=== PATIENT | female | born 1965 | race Caucasian/White ===

== ENCOUNTER → 2017-12-17 13:32 | Outpatient (CLI) | payer BC, SELFPAY ==
--- NOTE | 2017-12-17 13:35 | XR_ITS ---
XR ankle RT min 3V HISTORY: Cyst along the medial aspect of the ankle ITS.REASON: Possible cyst on RT ankle ORDERING PHYSICIAN: Kulwant Daily MD PATIENT AGE: 52 years Comparison: None FINDINGS: No bony abnormalities are evident. No lytic or blastic change. There are mild osteoarthritic changes with minimal spurring at the distal aspect of the medial malleolus and lateral malleolus. Minimal hypertrophic changes are present along the waist of the talus. There is a 8 mm calcaneal spur. IMPRESSION: 1. Bony hypertrophic changes at the distal tibia and fibula were 2. Otherwise negative, no lytic lesions evident
== END ==
PROVIDERS: PCP Physician Assistant; Visit Provider Orthopaedic Surgery
DX: M25.571 Pain in right ankle and joints of right foot (principal)
CPT/HCPCS: 73610

== ENCOUNTER → 2017-12-25 12:04 | Outpatient (CLI) | payer BC, SELFPAY ==
--- NOTE | 2017-12-25 12:06 | MR_ITS ---
MR ankle RT wo con HISTORY: Growth on the medial side of the ankle ITS.REASON: right ankle pain ORDERING PHYSICIAN: Kulwant Daily MD PATIENT AGE: 52 years Comparison: 12/17/2017 TECHNIQUE: Standard multiplanar multiecho sequences are performed without contrast. FINDINGS: A marker is placed on the palpable nodule along the medial side of the right ankle posteriorly. This represents a subcutaneous well-circumscribed nodule oval in nature measuring 10 x 6 mm which is iso to hypointense on T1 and hyperintense on T2. This is well-circumscribed. This is medial to the Achilles tendon and does not appear to be associated with the tendon. Incidental note is made of fluid along the posterior aspect of the talocalcaneal joint. A small fluid collection is also noted along the anterior lateral aspect of the talus and in the talonavicular joint space. Mild hypertrophic changes are present at the talonavicular joint dorsally No obvious ligamentous abnormalities. Tendons about the ankle have an unremarkable appearance. IMPRESSION: 1. Well-circumscribed 10 x 6 mm subcutaneous cyst along the posterior medial aspect of the ankle which may represent a sebaceous cyst 2. Bursal fluid collections along the posterior aspect of the talocalcaneal joint and the talonavicular joint consistent with bursitis
== END ==
PROVIDERS: Family Provider Physician Assistant; PCP Physician Assistant; Visit Provider Orthopaedic Surgery
DX: M25.571 Pain in right ankle and joints of right foot (principal)
CPT/HCPCS: 73721

== ENCOUNTER → 2018-01-28 09:55 | Outpatient (CLI) | payer BC, SELFPAY ==
--- NOTE | 2018-01-28 10:14 | XR_ITS ---
XR chest 2V HISTORY: ITS.REASON: HTN ORDERING PHYSICIAN: Jessica Fierro DPM PATIENT AGE: 52 years COMPARISON: None available FINDINGS: The cardiomediastinal silhouette and pulmonary vascularity are within normal limits. The lungs are clear without infiltrates, suspicious nodules, or pleural effusions. No acute bony abnormalities. IMPRESSION: Negative chest, no acute finding
[2018-01-28 11:01] LABS: Basophils # 0.1 K/mm3 (0-0.2); Basophils % 0.6 % (0.1-2.0); Eosinophils # 0.1 K/mm3 (0.0-0.4); Eosinophils % 1.4 % (0.1-12.0); Hematocrit 44.4 % (37.0-47.0); Hemoglobin 14.5 g/dL (12.2-16.2); Lymphocytes # 2.2 K/mm3 (0.7-4.5); Lymphocytes % 26.2 K/mm3 (10-50); Mean Corpuscular HGB Conc 32.8 g/dL (31.8-35.4); Mean Corpuscular Hemoglobin 28.9 pg (27.0-31.2); Mean Corpuscular Volume 88.1 fl (81-99); Mean Platelet Volume 7.7 fl (7.4-10.4); Monocytes # 0.6 K/mm3 (0.1-1.0); Monocytes % 7.3 % (1.7-9.3); Neutrophils # 5.4 K/mm3 (1.8-7.8); Neutrophils % 64.6 % (37.0-80.0); Platelet Count 307 K/mm3 (142-424); Red Blood Count 5.04 M/mm3 (4.20-5.40); Red Cell Distribution Width 13.3 % (11.5-17.5); White Blood Count 8.3 K/mm3 (4.8-10.8)
[2018-01-28 11:18] LABS: Urine Pregnancy, HCG Qual. Negative (Negative)
[2018-01-28 11:38] LABS: Alanine Aminotransferase 53 U/L (12-78); Albumin Level 3.6 gm/dL (3.4-5.0); Alkaline Phosphatase 123 U/L (46-116); Anion Gap 7.3 mEq/L (5-15); Aspartate Amino Transferase 34 U/L (15-37); Bilirubin,Total 0.4 mg/dL (0.2-1.0); Blood Urea Nitrogen 10 mg/dL (7-18); Calcium 9.5 mg/dL (8.5-10.1); Carbon Dioxide 34 mmol/L (21.0-32.0); Chloride 103 mmol/L (98-107); Creatinine,Serum 0.88 mg/dL (0.55-1.02); Estimated Glomerular Filt Rate 68 ml/min (>60); GFR (African American) 82 ML/MIN (>60); Globulin 3.7 gm/dl (1.3-3.2); Glucose 94 mg/dL (74-106); Potassium 4.3 mmoL/L (3.5-5.1); Sodium 140 mmol/L (136-145); Total Protein,Serum 7.3 gm/dL (6.4-8.2)
== END ==
PROVIDERS: PCP Physician Assistant; Visit Provider Podiatrist
DX: Z01.818 Encounter for other preprocedural examination (principal); M67.471 Ganglion, right ankle and foot; M76.821 Posterior tibial tendinitis, right leg; M77.51 Other enthesopathy of right foot and ankle; M25.571 Pain in right ankle and joints of right foot; G89.29 Other chronic pain
CPT/HCPCS: 36415; 71046; 80053; 81025; 85025; 93005

== ENCOUNTER 2018-03-12 08:05 | Outpatient (RCR) | payer BC, SELFPAY | END 2018-03-12 12:26 | disposition home or self-care (01) | LOC: PT 08:05 | PROVIDERS: Family Provider Physician Assistant; PCP Physician Assistant; Visit Provider Podiatrist | DX: Z98.890 Other specified postprocedural states (principal) | CPT/HCPCS: 97110; 97163 ==

== ENCOUNTER → 2018-03-26 13:40 | Outpatient (CLI) | payer BC, SELFPAY ==
--- NOTE | 2018-03-26 13:43 | XR_ITS ---
XR foot wt bearing RT 3V HISTORY: Follow-up surgery, foot pain ITS.REASON: POST-OP ORDERING PHYSICIAN: Jessica Fierro DPM PATIENT AGE: 52 years COMPARISON: None FINDINGS: Bandage artifact overlies the mid foot. Hypertrophic changes are present at the anterior distal tibia and there are mild osteoarthritic changes of the first metatarsophalangeal joint. No acute fracture or dislocation. No lytic changes. IMPRESSION: Mild osteoarthritis worst metatarsophalangeal joint and hypertrophy of the anterior distal tibia. Bone spur of the calcaneus also noted not mentioned in the body the report. Overlying bandage artifact No acute finding
--- NOTE | 2018-03-26 13:43 | XR_ITS ---
XR ankle wt bearing RT min 3V HISTORY: Follow-up surgery ITS.REASON: POST-OP ORDERING PHYSICIAN: Jessica Fierro DPM PATIENT AGE: 52 years Comparison: None FINDINGS: No fracture or dislocation. No lytic or blastic change. There is normal mineralization.. The joint spaces are well-preserved. No significant degenerative/arthritic changes. No erosive changes evident. Hypertrophic changes of the ureter distal tibia once again noted. Bandage artifact is present IMPRESSION: Bandage artifact, no acute finding
== END ==
PROVIDERS: PCP Physician Assistant; Visit Provider Podiatrist
DX: Z98.890 Other specified postprocedural states (principal)
CPT/HCPCS: 73610; 73630

== ENCOUNTER → 2022-02-05 17:45 | Outpatient (CLI) | payer MEDICARE, SELFPAY ==
[2022-02-05 19:26] LABS: Basophils # 0.1 K/mm3 (0-0.2); Basophils % 0.5 % (0.1-2.0); Eosinophils # 0.2 K/mm3 (0.0-0.4); Eosinophils % 1.6 % (0.1-12.0); Hematocrit 43.7 % (37.0-47.0); Hemoglobin 14.7 g/dL (12.2-16.2); Lymphocytes # 2.3 K/mm3 (0.7-4.5); Lymphocytes % 24.4 % (10-50); Mean Corpuscular HGB Conc 33.6 g/dL (31.8-35.4); Mean Corpuscular Hemoglobin 29.7 pg (27.0-31.2); Mean Corpuscular Volume 88.5 fl (81-99); Mean Platelet Volume 8.8 fl (7.4-10.4); Monocytes # 0.5 K/mm3 (0.1-1.0); Monocytes % 5.7 % (1.7-9.3); Neutrophils # 6.5 K/mm3 (1.8-7.8); Neutrophils % 67.9 % (37.0-80.0); Platelet Count 317 K/mm3 (142-424); Red Blood Count 4.94 M/mm3 (4.20-5.40); Red Cell Distribution Width 13.6 % (11.5-17.5); White Blood Count 9.6 K/mm3 (4.8-10.8)
[2022-02-05 19:28] LABS: Alanine Aminotransferase 56 U/L (12-78); Albumin Level 4.2 g/dl (3.5-5.0); Albumin/Globulin Ratio 1.4 (1.1-1.8); Alkaline Phosphatase 181 U/L (38-126); Anion Gap 11.5 mEq/L (5-15); Aspartate Amino Transferase 57 U/L (14-36); Bilirubin,Total 0.5 mg/dl (0.2-1.3); Blood Urea Nitrogen 20 mg/dl (7-17); Calcium 9.7 mg/dl (8.4-10.2); Carbon Dioxide 29 mmol/L (22.0-30.0); Chloride 104 mmol/L (98-107); Chol/HDL Ratio 2.8 (1-3.5); Cholesterol 169 mg/dl (140-200); Estimated Glomerular Filt Rate 87 ml/min (>60); GFR (African American) 105 ML/MIN (>60); Globulin 2.9 g/dL (1.3-3.2); Glucose 115 mg/dl (74-100); HDL Cholesterol 61 mg/dl (40-60); Potassium 4.5 mmoL/L (3.5-5.1); Sodium 140 mmol/L (136-145); Total Protein,Serum 7.1 g/dl (6.3-8.2); Triglycerides 106 mg/dl (30-150); VLDL Cholesterol 21 mg/dL (0-40)
[2022-02-05 19:39] LABS: Direct LDL Cholesterol 70.47 mg/dL (100-129)
[2022-02-05 20:00] LABS: Thyroid Stimulating Hormone 0.06 uIU/mL (0.465-4.68)
== END ==
PROVIDERS: PCP Family Medicine; Visit Provider Family Medicine
DX: K21.9 Gastro-esophageal reflux disease without esophagitis (principal); E78.5 Hyperlipidemia, unspecified; E03.9 Hypothyroidism, unspecified; I10 Essential (primary) hypertension
CPT/HCPCS: 80053; 80061; 84443; 85025

== ENCOUNTER → 2022-05-07 10:08 | Outpatient (CLI) | payer MEDICARE, SELFPAY ==
[2022-05-07 20:20] LABS: Thyroid Stimulating Hormone 0.21 uIU/mL (0.465-4.68)
== END ==
PROVIDERS: PCP Family Medicine; Visit Provider Family Medicine
DX: I10 Essential (primary) hypertension (principal)
CPT/HCPCS: 84443

== ENCOUNTER → 2022-09-30 08:06 | Outpatient (CLI) | payer MEDICARE, OTHER, SELFPAY ==
--- NOTE | 2022-09-30 08:15 | XR_ITS ---
FINAL REPORT CLINICAL HISTORY: foot pain FINDINGS: Left foot Three views were obtained. There is no acute fracture or dislocation. There is a large plantar spur. There are mild hypertrophic changes along the dorsal aspect of the intertarsal joints. No soft tissue abnormality is identified. IMPRESSION: Degenerative and chronic appearing findings. Reviewed, Interpreted and Dictated by Sergio Mondragon MD Transcribed by Zenia Epps Authenticated and . [facility]
--- NOTE | 2022-09-30 08:15 | XR_ITS ---
FINAL REPORT CLINICAL HISTORY: ankle pain FINDINGS: Left ankle Three views were obtained. There is no acute fracture or dislocation. There are mild hypertrophic changes along the dorsal aspect of the intertarsal joints. There is a well corticated ossific density at the inferior medial malleolus measuring 7 mm which may be due to old trauma. IMPRESSION: Degenerative and chronic appearing findings. Reviewed, Interpreted and Dictated by Sergio Mondragon MD Transcribed by Zenia Epps Authenticated and [facility]
== END ==
PROVIDERS: PCP Family Medicine; Visit Provider Podiatrist
DX: M79.672 Pain in left foot; M25.572 Pain in left ankle and joints of left foot
CPT/HCPCS: 73610; 73630

== ENCOUNTER → 2022-12-31 19:00 | Outpatient (CLI) | payer MEDICARE, OTHER, SELFPAY ==
[2022-12-31 16:57] LABS: Basophils % 0.4 % (0.1-2.0); Eosinophils # 0.2 K/mm3 (0.0-0.4); Eosinophils % 2.4 % (0.1-12.0); Hematocrit 43.5 % (37.0-47.0); Hemoglobin 14.6 g/dL (12.2-16.2); Lymphocytes % 26.9 % (10-50); Mean Corpuscular HGB Conc 33.5 g/dL (31.8-35.4); Mean Corpuscular Hemoglobin 29.1 pg (27.0-31.2); Mean Corpuscular Volume 86.8 fl (81-99); Mean Platelet Volume 8.7 fl (7.4-10.4); Monocytes # 0.5 K/mm3 (0.1-1.0); Monocytes % 6.8 % (1.7-9.3); Neutrophils # 4.7 K/mm3 (1.8-7.8); Neutrophils % 63.5 % (37.0-80.0); Platelet Count 344 K/mm3 (142-424); Red Blood Count 5.02 M/mm3 (4.20-5.40); Red Cell Distribution Width 13.8 % (11.5-17.5); White Blood Count 7.3 K/mm3 (4.8-10.8)
[2022-12-31 17:04] LABS: Anion Gap 14.7 mEq/L (5-15); Blood Urea Nitrogen 14 mg/dl (7-17); Calcium 9.4 mg/dl (8.4-10.2); Carbon Dioxide 27 mmol/L (22.0-30.0); Chloride 104 mmol/L (98-107); Estimated Glomerular Filt Rate 87 ml/min (>60); GFR (African American) 105 ML/MIN (>60); Glucose 189 mg/dl (74-100); Potassium 4.7 mmoL/L (3.5-5.1); Sodium 141 mmol/L (136-145)
== END ==
PROVIDERS: PCP Family Medicine; Visit Provider Family Medicine
DX: I10 Essential (primary) hypertension (principal)
CPT/HCPCS: 80048; 85025

== ENCOUNTER → 2023-01-16 15:45 | Outpatient (CLI) | payer MEDICARE, OTHER, SELFPAY ==
[2023-01-16 17:13] LABS: Chol/HDL Ratio 2.3 (1-3.5); Cholesterol 177 mg/dl (140-200); HDL Cholesterol 76 mg/dl (40-60); Triglycerides 80 mg/dl (30-150); VLDL Cholesterol 16 mg/dL (0-40)
[2023-01-16 17:22] LABS: Hemoglobin A1C 6.2 % (4.0-6.0)
[2023-01-16 17:24] LABS: Direct LDL Cholesterol 75.58 mg/dL (100-129)
[2023-01-16 17:44] LABS: Thyroid Stimulating Hormone 0.93 uIU/mL (0.465-4.68)
== END ==
PROVIDERS: PCP Family Medicine; Visit Provider Family Medicine
DX: E11.9 Type 2 diabetes mellitus without complications (principal); I10 Essential (primary) hypertension; E03.9 Hypothyroidism, unspecified
CPT/HCPCS: 80061; 83036; 84443

== ENCOUNTER → 2023-01-22 11:43 | Outpatient (CLI) | payer MEDICARE, OTHER, SELFPAY ==
--- NOTE | 2023-01-22 11:46 | US_ITS ---
FINAL REPORT CLINICAL HISTORY: hypothyroid COMPARISON: None FINDINGS: Thyroid ultrasound: The right lobe of the thyroid measures 2.4 x 0.7 x 0.74 cm in size. The overall echotexture of the right lobe of the thyroid is heterogeneous. The overall size of the right lobe of the thyroid is small. The left lobe of the thyroid measures 2.5 x 0.6 x 1 cm in size. The overall echotexture of the right lobe of the thyroid is heterogeneous. There is a single cystic nodule in the left lobe which measures 0.5 x 0.2 x 0.3 cm in size, a TI-RADS category 1 nodule. The overall size of the left lobe is also small. The isthmus of the thyroid gland measures 0.15 cm in thickness. IMPRESSION: Small heterogeneous thyroid gland, possibly secondary to chronic thyroiditis. Single small cystic nodule, TI-RADS 1 category nodule as described above. No follow-up is required. Reviewed, Interpreted and Dictated by Loyd Nick III, MD Transcribed by Lo yKle Authenticated and [facility]
== END ==
LOC: RAD 11:44
PROVIDERS: PCP Family Medicine; Visit Provider Family Medicine
DX: E03.9 Hypothyroidism, unspecified (principal)
CPT/HCPCS: 76536

== ENCOUNTER → 2023-02-05 23:21 | Outpatient (CLI) | payer MEDICARE, OTHER, SELFPAY ==
[2023-02-05 17:37] LABS: Anion Gap 12.7 mEq/L (5-15); Blood Urea Nitrogen 11 mg/dl (7-17); Calcium 8.7 mg/dl (8.4-10.2); Carbon Dioxide 29 mmol/L (22.0-30.0); Chloride 104 mmol/L (98-107); Estimated Glomerular Filt Rate 87 ml/min (>60); GFR (African American) 105 ML/MIN (>60); Glucose 187 mg/dl (74-100); Potassium 3.7 mmoL/L (3.5-5.1); Sodium 142 mmol/L (136-145)
[2023-02-05 21:01] LABS: Microalbumin/Creatinine Ratio 13.3
[2023-02-05 21:05] LABS: Creatinine,Urine Random 183 mg/dL (Not Estab.)
== END ==
PROVIDERS: PCP Family Medicine; Visit Provider Family Medicine
DX: E11.9 Type 2 diabetes mellitus without complications (principal); E87.6 Hypokalemia; Z79.84 Long term (current) use of oral hypoglycemic drugs
CPT/HCPCS: 80048; 82043; 82570

== ENCOUNTER → 2023-04-01 10:30 | Outpatient (CLI) | payer MEDICARE, OTHER, SELFPAY | PROVIDERS: PCP Family Medicine; Visit Provider Family Medicine | DX: R30.0 Dysuria (principal); B96.29 Other Escherichia coli [E. coli] as the cause of diseases classified elsewhere | CPT/HCPCS: 87086; 87088; 87186 ==

== ENCOUNTER → 2023-06-12 13:04 | Outpatient (CLI) | payer MEDICARE, OTHER, SELFPAY | PROVIDERS: PCP Family Medicine; Visit Provider Family Medicine | DX: E11.9 Type 2 diabetes mellitus without complications (principal); Z79.84 Long term (current) use of oral hypoglycemic drugs | CPT/HCPCS: 83036 ==

== ENCOUNTER → 2023-06-14 08:01 | Outpatient (CLI) | payer MEDICARE, OTHER, SELFPAY ==
--- NOTE | 2023-06-14 08:02 | MR_ITS ---
PROCEDURE INFORMATION: Exam: MR Left Lower Extremity Joint Without Contrast; Ankle Exam date and time: 06/14/2023 8:02 AM Age: 57 years old Clinical indication: Patient HX: Left ankle pain TECHNIQUE: Imaging protocol: Magnetic resonance imaging of the left lower extremity without contrast. Exam focused on the ankle. COMPARISON: CR XR ANKLE WT BEARING LT MIN 3V 09/30/2022 8:20 AM FINDINGS: Bones/joints: Prominent calcaneal spurs are identified. Small tibiotalar and subtalar joint effusions are identified. Partial failure of fat saturation limits evaluation of the mid and visualized forefoot. No dislocation ankle. No visualized acute marrow edema involving the ankle. Minimal fluid is identified the level of the MTP joint, consistent with effusion. Evaluation of this joint is limited. Degenerative spurring is identified at the tibiotalar and subtalar joints. There is spurring of the medial malleolus and adjacent talus. Inferior to the medial malleolus, a few tiny ossific loose bodies are identified. Spurring is also identified of the lateral malleolus. LIGAMENTS: Distal tibiofibular syndesmosis: Heterogeneous signal intensity of the anterior and posterior tibiofibular ligaments. No full-thickness tear is identified. Anterior talofibular ligament: There is heterogeneous signal intensity of the anterior talofibular ligament. Partial tear is suggested. Posterior talofibular ligament: No visualized tear. Calcaneofibular ligament: Minimal edema is seen adjacent to the calcaneofibular ligament. Ligament sprain is suggested. This ligament is small in caliber, and partial tear cannot be excluded. Deltoid ligament complex: No visualized tear. TENDONS: Flexor tendons of foot: There is minimal fluid adjacent to the flexor digitorum tendon, and tenosynovitis cannot be excluded. Tibialis posterior tendon: Minimal tenosynovitis of the posterior tibialis tendon. Peroneal tendons: Minimal tenosynovitis of the peroneal tendons. Extensor tendons of foot: Unremarkable as visualized. Tibialis anterior tendon: Minimal fluid is seen adjacent to the tibialis anterior tendon, and tenosynovitis cannot be excluded. Achilles tendon: Thickening and heterogeneous signal intensity are visualized of the Achilles tendon, consistent with tendinosis. Tarsal canal (Sinus tarsi): A cystic collection of fluid are identified dorsal to the anterior talus and extending into the sinus tarsi, consistent with a synovial or ganglion cyst. This measures 2.0 x 1.6 x 1.2 cm. Mild edema within the sinus tarsi. Soft tissues: Mild soft tissue edema is identified at the plantar aspect of the forefoot. An isointense pressure lesion on T1 is identified plantar to the 5th MTP joint. Evaluation of the forefoot is limited. Plantar fascia: Intact, as visualized. IMPRESSION: 1. Achilles tendinosis. 2. Small tibiotalar and subtalar joint effusions are identified. 3. Minimal tenosynovitis of the posterior tibialis tendon. Minimal tenosynovitis of the peroneal tendons. 4. Suggested partial tear of the anterior talofibular ligament. 5. Minimal edema is seen adjacent to the calcaneofibular ligament. Ligament sprain is suggested. 6. Degenerative changes. Inferior to the medial malleolus, a few tiny ossific loose bodies are identified. Prominent calcaneal spurs are identified. 7. A cystic collection of fluid are identified dorsal to the anterior talus and extending into the sinus tarsi, consistent with a synovial or ganglion cyst. 8. Additional findings described above.
== END ==
PROVIDERS: PCP Family Medicine; Visit Provider Podiatrist
DX: M25.572 Pain in left ankle and joints of left foot (principal); M76.62 Achilles tendinitis, left leg; S86.012A Strain of left Achilles tendon, initial encounter
CPT/HCPCS: 73721

== ENCOUNTER 2023-08-19 16:44 | Outpatient (CLI) | payer MEDICARE, OTHER, SELFPAY | END 2023-08-19 23:59 | LOC: LAB.DROPOF 16:44 | PROVIDERS: PCP Family Medicine; Visit Provider Family Medicine | DX: R39.9 Unspecified symptoms and signs involving the genitourinary system (principal); B96.89 Other specified bacterial agents as the cause of diseases classified elsewhere | CPT/HCPCS: 87086 ==

== ENCOUNTER 2023-09-25 17:09 | Outpatient (CLI) | payer MEDICARE, OTHER, SELFPAY | END 2023-09-25 23:59 | LOC: LAB.DROPOF 17:10 | PROVIDERS: PCP Family Medicine; Visit Provider Family Medicine | DX: R30.0 Dysuria (principal); B95.1 Streptococcus, group B, as the cause of diseases classified elsewhere; B96.89 Other specified bacterial agents as the cause of diseases classified elsewhere | CPT/HCPCS: 87086 ==

== ENCOUNTER 2024-01-13 16:49 | Outpatient (CLI) | payer MEDICARE, OTHER, SELFPAY ==
[2024-01-13 16:43] LABS: Basophils # 0.1 K/mm3 (0-0.2); Basophils % 0.9 % (0.1-2.0); Eosinophils # 0.1 K/mm3 (0.0-0.4); Eosinophils % 1.2 % (0.1-12.0); Hematocrit 42.4 % (37.0-47.0); Hemoglobin 14.2 g/dL (12.2-16.2); Lymphocytes # 2.1 K/mm3 (0.7-4.5); Lymphocytes % 27.4 % (10-50); Mean Corpuscular HGB Conc 33.4 g/dL (31.8-35.4); Mean Corpuscular Hemoglobin 30.6 pg (27.0-31.2); Mean Corpuscular Volume 91.5 fl (81-99); Mean Platelet Volume 9.1 fl (7.4-10.4); Monocytes # 0.4 K/mm3 (0.1-1.0); Monocytes % 4.9 % (1.7-9.3); Neutrophils # 4.9 K/mm3 (1.8-7.8); Neutrophils % 65.5 % (37.0-80.0); Platelet Count 312 K/mm3 (142-424); Red Blood Count 4.63 M/mm3 (4.20-5.40); Red Cell Distribution Width 14.1 % (11.5-17.5); White Blood Count 7.5 K/mm3 (4.8-10.8)
[2024-01-13 17:16] LABS: Alanine Aminotransferase 38 U/L (12-78); Albumin Level 4.2 g/dl (3.5-5.0); Albumin/Globulin Ratio 1.4 (1.1-1.8); Alkaline Phosphatase 118 U/L (38-126); Anion Gap 12.3 mEq/L (5-15); Aspartate Amino Transferase 38 U/L (14-36); Bilirubin,Total 0.6 mg/dl (0.2-1.3); Blood Urea Nitrogen 10 mg/dl (7-17); Calcium 9.9 mg/dl (8.4-10.2); Carbon Dioxide 31 mmol/L (22.0-30.0); Chloride 102 mmol/L (98-107); Chol/HDL Ratio 2.7 (1-3.5); Cholesterol 180 mg/dl (140-200); Estimated Glomerular Filt Rate 86 ml/min (>60); GFR (African American) 104 ML/MIN (>60); Globulin 2.9 g/dL (1.3-3.2); Glucose 114 mg/dl (74-100); HDL Cholesterol 67 mg/dl (40-60); Potassium 4.3 mmoL/L (3.5-5.1); Sodium 141 mmol/L (136-145); Total Protein,Serum 7.1 g/dl (6.3-8.2); Triglycerides 87 mg/dl (30-150); VLDL Cholesterol 17 mg/dL (0-40)
[2024-01-13 17:27] LABS: Direct LDL Cholesterol 78.66 mg/dL (100-129)
[2024-01-13 20:08] LABS: Hemoglobin A1C 5.7 % (4.0-6.0)
[2024-01-14 11:30] LABS: HIV (1&2) Antibody Rapid NON REACTIVE
[2024-01-15 11:04] LABS: HCV Ab Non Reactive (Non Reactive)
== END 2024-01-13 23:59 | disposition home or self-care (01) ==
LOC: LAB.DROPOF 16:50
PROVIDERS: PCP Family Medicine; Visit Provider Family Medicine
DX: E11.9 Type 2 diabetes mellitus without complications (principal); E78.5 Hyperlipidemia, unspecified; Z11.59 Encounter for screening for other viral diseases; I10 Essential (primary) hypertension; Z11.4 Encounter for screening for human immunodeficiency virus [HIV]; E03.9 Hypothyroidism, unspecified; Z79.84 Long term (current) use of oral hypoglycemic drugs
CPT/HCPCS: 80050; 80053; 80061; 83036; 84443; 85025

== ENCOUNTER 2024-11-02 11:05 | Outpatient (CLI) | payer MEDICARE, OTHER, SELFPAY ==
[2024-11-02 17:09] LABS: Basophils # 0.1 K/mm3 (0-0.2); Basophils % 0.8 % (0.1-2.0); Eosinophils # 0.1 Kmm3 (0.0-0.4); Eosinophils % 1.7 % (0.1-12.0); Hemoglobin 14.9 g/dL (12.2-16.2); Lymphocytes % 26.8 % (10-50); Mean Corpuscular HGB Conc 33.1 g/dL (31.8-35.4); Mean Corpuscular Hemoglobin 29.4 pg (27.0-31.2); Mean Corpuscular Volume 88.9 fl (81-99); Monocytes # 0.6 K/mm3 (0.1-1.0); Monocytes % 7.7 % (1.7-9.3); Neutrophils # 4.8 K/mm3 (1.8-7.8); Neutrophils % 62.7 % (37.0-80.0); Nucleated Red Blood Cells # 0 10^3/uL; Nucleated Red Blood Cells % 0 %; Platelet Count 309 K/mm3 (142-424); Red Blood Count 5.06 M/mm3 (4.20-5.40); Red Cell Distribution Width 13.1 % (11.5-17.5); Red Cell Distribution Width-SD 42.5 fL; White Blood Count 7.6 K/mm3 (4.8-10.8)
[2024-11-02 17:23] LABS: Albumin Level 4.6 g/dl (3.5-5.0); Chloride 106 mmol/L (98-107); Potassium 4.3 mmoL/L (3.5-5.1); Sodium 142 mmol/L (136-145)
[2024-11-02 17:25] LABS: Alanine Aminotransferase 27 U/L (12-78); Blood Urea Nitrogen 15 mg/dl (7-17); Estimated Glomerular Filt Rate 103 ml/min (>60); GFR (African American) 124 ML/MIN (>60)
[2024-11-02 17:26] LABS: Albumin/Globulin Ratio 1.4 (1.1-1.8); Alkaline Phosphatase 117 U/L (38-126); Anion Gap 13.3 mEq/L (5-15); Aspartate Amino Transferase 34 U/L (14-36); Bilirubin,Total 0.5 mg/dl (0.2-1.3); Calcium 9.4 mg/dl (8.4-10.2); Carbon Dioxide 27 mmol/L (22.0-30.0); Chol/HDL Ratio 2.7 (1-3.5); Cholesterol 208 mg/dl (140-200); Globulin 3.2 g/dL (1.3-3.2); Glucose 106 mg/dl (74-100); HDL Cholesterol 78 mg/dl (40-60); Total Protein,Serum 7.8 g/dl (6.3-8.2); Triglycerides 116 mg/dl (30-150); VLDL Cholesterol 23 mg/dL (0-40)
[2024-11-02 17:37] LABS: Direct LDL Cholesterol 96.71 mg/dL (100-129)
[2024-11-02 17:55] LABS: Thyroid Stimulating Hormone 0.82 uIU/mL (0.465-4.68)
[2024-11-02 23:02] LABS: Hemoglobin A1C 5.6 % (4.0-6.0)
--- OUTSIDE RECORDS SUMMARY | 2024-11-03 10:05 | XMS_ITS | Continuity of Care Document ---
Author Name [facility] Organization [facility] Care Team Providers Care Data Mining Analyst Name Role Phone [facility] Unavailable Unavailable Medications Combined list of outpatient medications from [facility] of Defense and [facility] Affairs facilities.Medications provided include 1) outpatient medications from the last 15 months, and 2) patient-reported medications. Medication Details Route Status Patient Instructions Prescription Expires Prescription Number Last Dispense Date Ordering Provider Order Date Order Qty Source LEVOTHYROXI NE SODIUM (levothyrox ine sodium), 200 MCG, CAPSULE, ORAL, [employer], 30 ea. BLIST PACK Cancele d [id number] : 2023 0 Pharmac y Data Transac tion Service Facilit y LEVOTHYROXI NE SODIUM (levothyrox ine sodium), 200 MCG, CAPSULE, ORAL, [employer], 30 ea. BLIST PACK Active [id number] 2023 90 Pharmac y Data Transac tion Service Facilit y Social History Combined list of available smoking, tobacco, and other social history from Department of Defense and Veterans Affairs facilities. Social History Type Response Date Comment Sourc e This section is an empty social history section. [facility]
== END 2024-11-02 23:59 | disposition home or self-care (01) ==
LOC: LAB.DROPOF 11-03 10:04
PROVIDERS: PCP Family Medicine; Visit Provider Family Medicine
DX: E03.9 Hypothyroidism, unspecified (principal)
CPT/HCPCS: 80053; 80061; 83036; 84443; 85025

== ENCOUNTER 2025-04-14 11:19 | Outpatient (CLI) | payer MEDICARE, OTHER, SELFPAY ==
--- OUTSIDE RECORDS SUMMARY | 2025-03-03 10:30 | XMS_ITS | Encounter Summary ---
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 Pt denies chest pain, dizziness, no falls. Pt states she SOA, swelling of lower limbs, occasionally feels palpitations. Encounter Details Date Type Department Care Team (Late st Contact Info) Description 03/03/2025 10:30 AM EDT Office Visit [facility] [address] [place] [address] Vicki Torres, [place] [address] [place] [address] Shortness of breath (Primary Dx); Primary hypertension Social History Tobacco Use Types Packs/Day Years Used Date Smoking Tobacco: Never Passive Smoke Exposure: Never Smokeless Tobacco: Never Alcohol Use Standard Drinks/Week Comments No 0 (1 standard drink = 0.6 oz pur e alcohol) PHQ-2 Answer Date Recorded Patient Health Questionnaire-9 Score 7 03/02/2025 Comments Unknown Sex and Gender Information Value Date Recorded Sex Assigned at Female 02/24/2025 10:33 AM EDT Legal Sex Female 12:39 PM EDT Gender Identity Not on file Sexual Orientation Straight 02/24/2025 10 :33 AM EDT documented as of this encounter Last Filed Vital Signs Vital Sign Reading Time Taken Comments Blood Pressure 148/80 03/03/2025 10:25 AM EDT Pulse 87 03/03/2025 10:25 AM EDT Temperature 36.6 C (97.8 F) 03/03/2025 10:25 AM EDT Respiratory Rate - - Oxygen Saturation 98% 03/03/2025 10:25 AM EDT Inhaled Oxygen Concentration - - Weight 115 kg (253 lb 14.4 oz) 03/03/2025 10:25 AM EDT Height 167.6 cm (5' 6 ) 03/03/2025 10:25 AM EDT Body Mass Index 40.98 03/03/2025 10:25 AM EDT documented in this encounter Progress Notes * Vicki Torres APRN - 03/03/2025 7:00 PM EDTAssociated Problem(s): Hypertension Pressure today 148/80. And this is borderline. The patient has been to her PCP office yesterday and he is also evaluating her blood pressure and following her blood pressure medications. He has made blood pressure medication adjustments so at this time she is encouraged just to continue his blood pressure medication regimen and follow-up with him She is encouraged low-sodium diet She is encouraged to continue her weight loss journey and continue to follow-up with her physician that is prescribing weight loss medications She is encouraged regular aerobic exercise She is encouraged to lower her sugars and carbohydrates * Vicki Torres APRN - 03/03/2025 6:59 PM EDTAssociated Problem(s): Shortness of breath She reports that she does have shortness of air with exertional activity. She has related this to carrying extra weight. She reports she is working with her family physician to lose weight. And she is currently on Adipex. Plan: Check EKG today and this is sinus rhythm heart rate 81 Echocardiogram was completed in 2022 normal LV size and function. She had a grade 1 diastolic dysfunction. And trace mitral valve regurgitation. EF within normal limits. She had a low risk stress test February 03, 2023. Discussed do not think there is any need to repeat her echo or stress test at this time. She is working on her weight loss and if her shortness of air improves with weight loss then we will plan an annual follow-up. Patient is advised if she loses weight and her shortness of breath does not increase or worsens then she should come back for further evaluation sooner * Vicki Torres APRN - 03/03/2025 10:30 AM EDTAssociated Order(s): ECG 12 Lead Pre-Procedure Diagnose(s): Shortness of breath; Primary hypertension Post-Procedure Diagnose(s): Shortness of breath; Primary hypertension Images from the original note were not included. [facility] Provider Note Date: 03/03/2025 Name: Marla Hoyt : 1965 PCP: Dinesh Yanez MD Chief Complaint Patient presents with Hypertension Pt is here for a 1 year follow up on HTN. Pt denies chest pain, dizziness, no falls. Pt states she SOA, swelling of lower limbs, occasionally feels palpitations. Subjective History of Present Illness Marla Hoyt is a 59 y.o. female who presents today for annual follow-up. She is on cardiology surveillance for her known history of hypertension, hyperlipidemia, grade 1 diastolic dysfunction see note echocardiogram BP has been borderline and she seen her PCP yesterday. She was trying to lose weight to improved. She reports that she has been taking Adipex. But she has not been losing weight. She had been on ramipril in the past and it was stopped for borderline low. She has palpitations once every 2-3 weeks, few beats and goes away. She is Metoprolol and this is helping to keep BP and HR down. She reports that her shortness of air with exertional activity has been stable and not increasing. And she relates this to carrying extra weight. She also has bilateral lower extremity edema. This comes and goes. She reports it is always better in the early mornings. And will get worse if the day goes along. Cardiac history 1. Hypertension 2. Hyperlipidemia Nuclear stress test 02/03/2023-normal nuclear ejection fraction. No scintigraphic evidence of ischemia. Echocardiogram 01/08/2023-normal LV size and function. Grade 1 diastolic dysfunction. Trace mitral valve regurgitation. [facility] 03/19/2017-normal coronary arteries. CTA of chest 12/27/2022-no pulmonary embolism. No thoracic aortic aneurysm/dissections. Small pericardial effusion of uncertain etiology. EKG 12/27/2022-normal sinus rhythm, cannot rule out anterior infarct. HR 90 bpm Reports Denies Chest Pain [] [x] Shortness of Air [] [x] Palpitations [x] [] Edema [x] [] Dizziness [] [x] Syncope [] [x] Allergies Allergen Reactions Penicillins Hives Current Outpatient Medications: albuterol sulfate HFA 108 (90 Base) MCG/ACT inhaler, INHALE 2 PUFFS BY MOUTH EVERY 6 HOURS NEEDED FOR SHORTNESS OF BREATH OR WHEEZING, Disp: , Rfl: amLODIPine (NORVASC) 10 MG tablet, Take 1 tablet by mouth Daily., Disp: , Rfl: aspirin 81 MG EC tablet, Take 1 tablet by mouth Daily., Disp: , Rfl: cyclobenzaprine (FLEXERIL) 5 MG tablet, Take 1 tablet by mouth Every 12 (Twelve) Hours., Disp: , Rfl: estradiol (ESTRACE) 0.5 MG tablet, , Disp: , Rfl: ibuprofen (ADVIL,MOTRIN) 800 MG tablet, Take 1 tablet by mouth Every 6 (Six) Hours As Needed for Mild Pain., Disp: , Rfl: imipramine (TOFRANIL) 25 MG tablet, TAKE 1 TABLET BY MOUTH AT BEDTIME NIGHTLY, Disp: , Rfl: levothyroxine sodium (TIROSINT) 137 MCG capsule, 1 capsule., Disp: , Rfl: metoprolol succinate XL (TOPROL-XL) 25 MG 24 hr tablet, Take 1 tablet by mouth Daily. for high blood pressure, Disp: , Rfl: omeprazole (priLOSEC) 40 MG capsule, Take 1 capsule by mouth Every 12 (Twelve) Hours., Disp: , Rfl: oxybutynin XL (DITROPAN-XL) 10 MG 24 hr tablet, Take 1 tablet by mouth Daily., Disp: , Rfl: phentermine (ADIPEX-P) 37.5 MG tablet, Take 1 tablet by mouth Every Morning Before Breakfast., Disp: , Rfl: pravastatin (PRAVACHOL) 40 MG tablet, Take 1 tablet by mouth Daily., Disp: , Rfl: QUEtiapine (SEROquel) 25 MG tablet, TAKE 1 TABLET BY MOUTH EVERY DAY NEEDED FOR MIGRAINES, Disp:, Rfl: triamcinolone (KENALOG) 0.1 % cream, APPLY TO AFFECTED AREA TWICE DAILY FOR ITCHING, Disp: , Rfl: Past Medical History: Diagnosis Date Headache Hypertension Stroke Past Surgical History: Procedure Laterality Date HIP ARTHROSCOPY LUMBAR SYNOVIAL CYST REMOVAL History reviewed. No pertinent family history. Social History Socioeconomic History Marital status: Tobacco Use Smoking status: Never Passive exposure: Never Smokeless tobacco: Never Vaping Use Vaping status: Never Used Passive vaping exposure: Yes Substance and Sexual Activity Alcohol use: No Drug use: Never Sexual activity: Defer Objective Vital Signs: BP 148/80 (BP Location: Left arm, Patient Position: Sitting, Cuff Size: Large Adult) Pulse 87 Temp 97.8 ??F (36.6 ??C) (Infrared) Ht 167.6 cm (66 ) Wt 115 kg (253 lb 14.4 oz) SpO2 98% BMI40.98 kg/m?? Estimated body mass index is 40.98 kg/m?? as calculated from the following: Height as of this encounter: 167.6 cm (66 ). Weight as of this encounter: 115 kg (253 lb 14.4 oz). Physical Exam Constitutional: Appearance: Normal appearance. She is well-developed. She is obese. HENT: Head: Normocephalic and atraumatic. Nose: Nose normal. Mouth/Throat: Mouth: Mucous membranes are moist. Eyes: General: No scleral icterus. Pupils: Pupils are equal, round, and reactive to light. Neck: Vascular: No carotid bruit. Cardiovascular: Rate and Rhythm: Normal rate and regular rhythm. Pulses: Normal pulses. Radial pulses are 2+ on the right side and 2+ on the left side. Dorsalis pedis pulses are 2+ on the right side and 2+ on the left side. Posterior tibial pulses are 2+ on the right side and 2+ on the left side. Heart sounds: Normal heart sounds. No murmur heard. Pulmonary: Effort: Pulmonary effort is normal. Breath sounds: Normal breath sounds. No wheezing or rhonchi. Abdominal: General: Bowel sounds are normal. Musculoskeletal: Cervical back: Neck supple. Right lower leg: No edema. Left lower leg: No edema. Skin: General: Skin is warm and dry. Capillary Refill: Capillary refill takes less than 2 seconds. Coloration: Skin is not cyanotic. Nails: There is no clubbing. Neurological: Mental Status: She is alert and oriented to person, place, and time. Motor: No weakness. Gait: Gait normal. Psychiatric: Mood and Affect: Mood normal. Behavior: Behavior normal. Behavior is cooperative. Thought Content: Thought content normal. Cognition and Memory: Memory normal. Labs reviewed: Labs 11/02/2024 CBC, CMP, lipids and hemoglobin A1c ECG 12 Lead Date/Time: 03/03/2025 7:01 PM Performed by: Vicki Torres APRN Authorized by: Vicki Torres APRN Comparison: compared with previous ECG from 12/27/2022 Similar to previous ECG Comparison to previous ECG: Sinus rhythm heart rate 90, cannot rule out old anterior infarct Rhythm: sinus rhythm Rate: normal BPM: 81 Conduction: conduction normal ST Segments: ST segments normal T Waves: T waves normal Other findings: low voltage Clinical impression: non-specific ECG Assessment and Plan Diagnoses and all orders for this visit: 1. Shortness of breath (Primary) Assessment & Plan: She reports that she does have shortness of air with exertional activity. She has related this to carrying extra weight. She reports she is working with her family physician to lose weight. And she is currently on Adipex. Plan: Check EKG today and this is sinus rhythm heart rate 81 Echocardiogram was completed in 2022 normal LV size and function. She had a grade 1 diastolic dysfunction. And trace mitral valve regurgitation. EF within normal limits. She had a low risk stress test February 03, 2023. Discussed do not think there is any need to repeat her echo or stress test at this time. She is working on her weight loss and if her shortness of air improves with weight loss then we will plan an annual follow-up. Patient is advised if she loses weight and her shortness of breath does not increase or worsens then she should come back for further evaluation sooner Orders: - ECG 12 Lead 2. Primary hypertension Assessment & Plan: Pressure today 148/80. And this is borderline. The patient has been to her PCP office yesterday and he is also evaluating her blood pressure and following her blood pressure medications. He has made blood pressure medication adjustments so at this time she is encouraged just to continue his blood pressure medication regimen and follow-up with him She is encouraged low-sodium diet She is encouraged to continue her weight loss journey and continue to follow-up with her physician that is prescribing weight loss medications She is encouraged regular aerobic exercise She is encouraged to lower her sugars and carbohydrates Orders: - ECG 12 Lead Recommendations: Report if any new/changing symptoms immediately, Limit salt, Elevate legs, and Exercise recommendations discussed Follow Up Return in about 1 year (around 03/03/2026) for Annual follow up and EKG . Patient was given instructions and counseling regarding her condition or for health maintenance advice. Please see specific information pulled into the AVS if appropriate. documented in this encounter Plan of Treatment Upcoming Encounters Date Type Department Care Team (Late st Contact Info) Description 03/09/2026 11:30 AM EDT Office Visit [facility] [address] [place] [address] Cee Juarez APRN [address] [place] [address] documented as of this encounter Procedures Procedure Name Priority Date/Time Associated Diagnosis Comments ECG 12-LEAD Routine 03/03/2025 7:01 PM EDT Shortness of breath Primary hypertension documented in this encounter Results * ECG 12-LEAD (03/03/2025 7:01 PM EDT) Narrative [facility] ECG - 03/03/2025 7:01 PM EDT Vicki Torres APRN 03/03/2025 7:02 PM ECG 12 Lead Date/Time: 03/03/2025 7:01 PM Performed by: Vicki Torres APRN Authorized by: Vicki Torres APRN Comparison: compared with previous ECG from 12/27/2022 Similar to previous ECG Comparison to previous ECG: Sinus rhythm heart rate 90, cannot rule out old anterior infarct Rhythm: sinus rhythm Rate: normal BPM: 81 Conduction: conduction normal ST Segments: ST segments normal T Waves: T waves normal Other findings: low voltage Clinical impression: non-specific ECG Procedure Note Vicki Torres [facility] - 03/03/2025 10:30 AM EDT Images from the original note were not included. [facility] Provider Note Date: 03/03/2025 Name: Marla Hoyt : 1965 PCP: Dinesh Yanez MD Chief Complaint Patient presents with Hypertension Pt is here for a 1 year follow up on HTN. Pt denies chest pain,dizziness, no falls. Pt states she SOA, swelling of lower limbs,occasionally feels palpitations. Subjective History of Present Illness Marla Hoyt is a 59 y.o. female who presents today for annualfollow-up. She is on cardiology surveillance for her known history ofhypertension, hyperlipidemia, grade 1 diastolic dysfunction see noteechocardiogram BP has been borderline and she seen her PCP yesterday. She was trying tolose weight to improved. She reports that she has been taking Adipex.But she has not been losing weight. She had been on ramipril in the past and it was stopped for borderlinelow. She has palpitations once every 2-3 weeks, few beats and goes away. She isMetoprolol and this is helping to keep BP and HR down. She reports that her shortness of air with exertional activity has beenstable and not increasing. And she relates this to carrying extra weight.She also has bilateral lower extremity edema. This comes and goes. Shereports it is always better in the early mornings. And will get worse ifthe day goes along. Cardiac history 1. Hypertension 2. Hyperlipidemia Nuclear stress test 02/03/2023-normal nuclear ejection fraction. Noscintigraphic evidence of ischemia. Echocardiogram 01/08/2023-normal LV size and function. Grade 1 diastolicdysfunction. Trace mitral valve regurgitation. [facility] 03/19/2017-normal coronary arteries. CTA of chest 12/27/2022-no pulmonary embolism. No thoracic aorticaneurysm/dissections. Small pericardial effusion of uncertain etiology. EKG 12/27/2022-normal sinus rhythm, cannot rule out anterior infarct. HR90 bpm Reports Denies Chest Pain [] [x] Shortness of Air [] [x] Palpitations [x] [] Edema [x] [] Dizziness [] [x] Syncope [] [x] Allergies Allergen Reactions Penicillins Hives Current Outpatient Medications: albuterol sulfate HFA 108 (90 Base) MCG/ACT inhaler, INHALE 2 PUFFS BYMOUTH EVERY 6 HOURS NEEDED FOR SHORTNESS OF BREATH OR WHEEZING, Disp: ,Rfl: amLODIPine (NORVASC) 10 MG tablet, Take 1 tablet by mouth Daily., Disp:, Rfl: aspirin 81 MG EC tablet, Take 1 tablet by mouth Daily., Disp: , Rfl: cyclobenzaprine (FLEXERIL) 5 MG tablet, Take 1 tablet by mouth Every 12(Twelve) Hours., Disp: , Rfl: estradiol (ESTRACE) 0.5 MG tablet, , Disp: , Rfl: ibuprofen (ADVIL,MOTRIN) 800 MG tablet, Take 1 tablet by mouth Every 6(Six) Hours As Needed for Mild Pain., Disp: , Rfl: imipramine (TOFRANIL) 25 MG tablet, TAKE 1 TABLET BY MOUTH AT BEDTIMENIGHTLY, Disp: , Rfl: levothyroxine sodium (TIROSINT) 137 MCG capsule, 1 capsule., Disp: ,Rfl: metoprolol succinate XL (TOPROL-XL) 25 MG 24 hr tablet, Take 1 tablet bymouth Daily. for high blood pressure, Disp: , Rfl: omeprazole (priLOSEC) 40 MG capsule, Take 1 capsule by mouth Every 12(Twelve) Hours., Disp: , Rfl: oxybutynin XL (DITROPAN-XL) 10 MG 24 hr tablet, Take 1 tablet by mouthDaily., Disp: , Rfl: phentermine (ADIPEX-P) 37.5 MG tablet, Take 1 tablet by mouth EveryMorning Before Breakfast., Disp: , Rfl: pravastatin (PRAVACHOL) 40 MG tablet, Take 1 tablet by mouth Daily.,Disp: , Rfl: QUEtiapine (SEROquel) 25 MG tablet, TAKE 1 TABLET BY MOUTH EVERY DAY ASNEEDED FOR MIGRAINES, Disp: , Rfl: triamcinolone (KENALOG) 0.1 % cream, APPLY TO AFFECTED AREA TWICE DAILYFOR ITCHING, Disp: , Rfl: Past Medical History: Diagnosis Date Headache Hypertension Stroke Past Surgical History: Procedure Laterality Date HIP ARTHROSCOPY LUMBAR SYNOVIAL CYST REMOVAL History reviewed. No pertinent family history. Social History Socioeconomic History Marital status: Tobacco Use Smoking status: Never Passive exposure: Never Smokeless tobacco: Never Vaping Use Vaping status: Never Used Passive vaping exposure: Yes Substance and Sexual Activity Alcohol use: No Drug use: Never Sexual activity: Defer Objective Vital Signs: BP 148/80 (BP Location: Left arm, Patient Position: Sitting, Cuff Size:Large Adult) Pulse 87 Temp 97.8 F (36.6 C) (Infrared) Ht 167.6cm (66 ) Wt 115 kg (253 lb 14.4 oz) SpO2 98% BMI 40.98 kg/m Estimated body mass index is 40.98 kg/m as calculated from thefollowing: Height as of this encounter: 167.6 cm (66 ). Weight as of this encounter: 115 kg (253 lb 14.4 oz). Physical Exam Constitutional: Appearance: Normal appearance. She is well-developed. She is obese. HENT: Head: Normocephalic and atraumatic. Nose: Nose normal. Mouth/Throat: Mouth: Mucous membranes are moist. Eyes: General: No scleral icterus. Pupils: Pupils are equal, round, and reactive to light. Neck: Vascular: No carotid bruit. Cardiovascular: Rate and Rhythm: Normal rate and regular rhythm. Pulses: Normal pulses. Radial pulses are 2+ on the right side and 2+ on the left side. Dorsalis pedis pulses are 2+ on the right side and 2+ on the leftside. Posterior tibial pulses are 2+ on the right side and 2+ on the leftside. Heart sounds: Normal heart sounds. No murmur heard. Pulmonary: Effort: Pulmonary effort is normal. Breath sounds: Normal breath sounds. No wheezing or rhonchi. Abdominal: General: Bowel sounds are normal. Musculoskeletal: Cervical back: Neck supple. Right lower leg: No edema. Left lower leg: No edema. Skin: General: Skin is warm and dry. Capillary Refill: Capillary refill takes less than 2 seconds. Coloration: Skin is not cyanotic. Nails: There is no clubbing. Neurological: Mental Status: She is alert and oriented to person, place, and time. Motor: No weakness. Gait: Gait normal. Psychiatric: Mood and Affect: Mood normal. Behavior: Behavior normal. Behavior is cooperative. Thought Content: Thought content normal. Cognition and Memory: Memory normal. Labs reviewed: Labs 11/02/2024 CBC, CMP, lipids and hemoglobin A1c ECG 12 Lead Date/Time: 03/03/2025 7:01 PM Performed by: Vicki Torres APRN Authorized by: Vicki Torres APRN Comparison: compared withprevious ECG from 12/27/2022 Similar to previous ECG Comparison to previous ECG: Sinus rhythm heart rate 90, cannot rule outold anterior infarct Rhythm: sinus rhythm Rate: normal BPM: 81 Conduction: conduction normal ST Segments: ST segments normal T Waves: T waves normal Other findings: low voltage Clinical impression: non-specific ECG Assessment and Plan Diagnoses and all orders for this visit: 1. Shortness of breath (Primary) Assessment & Plan: She reports that she does have shortness of air with exertionalactivity. She has related this to carrying extra weight. She reports she is working with her family physician to lose weight. Efren is currently on Adipex. Plan: Check EKG today and this is sinus rhythm heart rate 81 Echocardiogram was completed in 2022 normal LV size and function. She hada grade 1 diastolic dysfunction. And trace mitral valve regurgitation.EF within normal limits. She had a low risk stress test February 03, 2023. Discussed do not think there is any need to repeat her echo or stress testat this time. She is working on her weight loss and if her shortness ofair improves with weight loss then we will plan an annual follow-up. Patient is advised if she loses weight and her shortness of breath doesnot increase or worsens then she should come back for further evaluationsooner Orders: - ECG 12 Lead 2. Primary hypertension Assessment & Plan: Pressure today 148/80. And this is borderline. The patient has been to her PCP office yesterday and he is also evaluatingher blood pressure and following her blood pressure medications. He has made blood pressure medication adjustments so at this time she isencouraged just to continue his blood pressure medication regimen andfollow-up with him She is encouraged low-sodium diet She is encouraged to continue her weight loss journey and continue tofollow-up with her physician that is prescribing weight loss medications She is encouraged regular aerobic exercise She is encouraged to lower her sugars and carbohydrates Orders: - ECG 12 Lead Recommendations: Report if any new/changing symptoms immediately, Limitsalt, Elevate legs, and Exercise recommendations discussed Follow Up Return in about 1 year (around 03/03/2026) for Annual follow up and EKG . Patient was given instructions and counseling regarding her condition orfor health maintenance advice. Please see specific information pulled intothe AVS if appropriate. 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
[2025-04-14 21:15] LABS: Free T4 (Free Thyroxine) 2.27 ng/dl (0.78-2.19)
[2025-04-14 21:17] LABS: T4 (Thyroxine) 15.5 ug/dl (5.53-11.0)
[2025-04-14 21:31] LABS: Thyroid Stimulating Hormone 2.06 uIU/mL (0.465-4.68)
--- OUTSIDE RECORDS SUMMARY | 2025-04-15 10:44 | XMS_ITS | Clinical Summary ---
Author Organization [employer] ([place], [place], [place], [place]) Address [address] [place] [address] Care Team Providers Care Retail District Manager Name Role Phone Ayden Noyola MD Primary Care Provider + [phone] Allergies Active Allergy Reactions Criticality Noted Date Comments Penicillin Hives High 05/07/2022 Medications oxybutynin (DITROPAN) 5 MG tablet Take 5 mg by mouth daily. Active levothyroxine (SYNTHROID, LEVOTHROID) 200 MCG tablet Take 200 mcg by mouth Every morning on an empty stomach Takes 6 times a week, skips dose Every Friday . Active aspirin 81 MG EC tablet Take 81 mg by mouth daily. Active famotidine (PEPCID) 40 MG tablet Take 40 mg by mouth daily. Active ibuprofen (ADVIL,MOTRIN) 800 MG tablet Take 800 mg by mouth every 6 (six) hours as needed for Pain. Active imipramine (TOFRANIL) 25 MG tablet Take 25 mg by mouth nightly. Active metFORMIN (GLUCOPHAGE) 500 MG tablet Take 500 mg by mouth daily. Active metoprolol succinate (TOPROL-XL) 50 MG 24 hr tablet Take 50 mg by mouth daily. Active QUEtiapine (SEROquel) 25 MG tablet Take 25 mg by mouth nightly. Active atorvastatin (LIPITOR) 40 MG tablet Take 40 mg by mouth daily. Active ramipriL (ALTACE) 10 MG capsule Take 20 mg by mouth daily. Active Active Problems Problem Noted Date Diagnosed Date Thyroid disease Stroke Prediabetes Hypertension Hyperlipidemia GERD (gastroesophageal reflux disease) Back spasm Anxiety Family History Medical History Relation Name Comments Arthritis Other Diabetes Other High blood pressure Other Hyperlipidemia Other Stroke Other Thyroid disease Other Relation Name Status Comments Other Social History Tobacco Use Types Packs/Day Years Used Date Smoking Tobacco: Never Smokeless Tobacco: Never Alcohol Use Standard Drinks/Week Comments Never 0 (1 standard drink = 0.6 oz pur e alcohol) Food Insecurity Answer Date Recorded Food run out past 12 months Not on file 07/14 Food did not last past 12 months Not on file 07/31/2023 Employment Answer Date Recorded Help finding and keeping a job Not on file 0 07/31/2023 Family and Community Support Answer Moises e Recorded Help with Day to Day Activities Not on file 07/31/2023 Feeling Lonely or Isolated Not on file 07/31 Educational Attainment Answer Date Roland rded Speak language other than Frisian at home Not on file 07/31/2023 Want help with school or training Not on file 07/31/2023 Substance Use Answer Date Recorded Used prescription meds for non-medical reasons N ot on file 07/31/2023 Used illegal drugs past 12 months Not on file 07/31/2023 Comments Unknown Sex and Gender Information Value Date Recorded Sex Assigned at Not on file Legal Sex Female 5:38 PM CDT Gender Identity Not on file Sexual Orientation Not on file Last Filed Vital Signs Vital Sign Reading Time Taken Comments Blood Pressure 167/91 12/27/2022 4:15 PM EDT Pulse 96 12/27/2022 4:15 PM EDT Temperature 36.2 C (97.1 F) 12/27/2022 10:37 AM EDT Respiratory Rate 24 12/27/2022 4:15 PM EDT Oxygen Saturation 95% 12/27/2022 4:15 PM EDT Inhaled Oxygen Concentration - - Weight 113.4 kg (250 lb) 12/27/2022 10:37 AM EDT Height 160 cm (5' 3 ) 12/27/2022 10:37 AM EDT Body Mass Index 44.29 12/27/2022 10:37 AM EDT Plan of Treatment Health Maintenance Due Date Last Done Comments Medicare Initial AWV G0438 CT Colonography 1966 Colonoscopy 1966 Colorectal Cancer Screening 1966 FOBT/FIT 1966 Fit-DNA (Cologuard) 1966 Sigmoidoscopy 1966 Depression Screening (12+) 1978 HIV Screening 1981 Hepatitis C Screening 1984 Pap Smear 1987 Breast Cancer Screening 2006 Lipid Panel 2011 Pneumococcal 50+ years (1 of 1 - PCV) 2016 Shingles Vaccine (Zoster) (1 of 2) 2016 Tobacco Cessation Counseling and Screening (12+) 12/28/2023 12/27/2022 COVID-19 VACCINE (3 - 2024- season) 2025, 03/08/2021 Influenza Vaccine (#1) 2025 DTAP/TDAP/TD VACCINES (3 - Td or Tdap) 04/25/2026, 12/03/2015 Medical Devices Implanted Type Area Vat Packer Device Identifier Shelf Expiration Date Model / Serial / Lot Replacement [place]: [place] [address] [facility] [employer] Advance Directives For more information, please contact: [phone] * Full Code (Latest Code Status on File) Date Activated Date Inactivated Comments 05/09/2022 5:30 AM 05/09/2022 10:28 AM Care Teams Retail District Manager Relationship Specialty Start Date End Date Ayden Noyola MD [address] [place] [address] PCP - General Adolescent Medicine 05/09/22
--- OUTSIDE RECORDS SUMMARY | 2025-04-15 10:44 | XMS_ITS | Encounter Summary ---
Author Organization [facility] Address [address] [place] [address] Care Team Providers Care Animal Care Assistant Name Role Phone Dinesh Yanez MD Primary Care Provider [phone]- [phone] Encounter Details Date Type Department Care Team (Latest Contact Info) Description 03/03/2025 Travel Social History Tobacco Use Types Packs/Day Years [...] AM EDT documented as of this encounter Plan of Treatment Upcoming Encounters Date Type Department Care Team (Late st Contact Info) Description 03/09/2026 11:30 AM EDT Office Visit [facility] [address] [place] [address] Cee Juarez APRN [address] [place] [address] documented as of this encounter Visit Diagnoses Not on filedocumented in this encounter Care Teams Animal Care Assistant Relationship Specialty Start Date End Date Dinesh Yanez MD [address] [place] [address] PCP - General Family Medicine 12/30/22 documented as of this encounter
--- OUTSIDE RECORDS SUMMARY | 2025-04-15 10:44 | XMS_ITS | Referral Summary ---
Author Organization [employer] ([place], [place], [place], [place]) Address [address] [place] [address] Care Team Providers Care Primer Waterproofing Machine Operator Name Role Phone Ayden Noyola MD Primary Care Provider + [phone] Allergies Active Allergy Reactions Criticality Noted Date [...] GERD (gastroesophageal reflux disease) Back spasm Anxiety Social History Tobacco Use Types Packs/Day Years [...] Date Roland rded Speak language other than Nigerian at home Not on file 07/31/2023 Want [...] 12/27/2022 10:37 AM EDT Plan of Treatment Not on file Medical Devices Implanted Type Area Leather Softener Device Identifier Shelf Expiration Date Model / Serial / Lot Replacement Bilateral: Knee Insurance [facility] [employer] Advance Directives For more information, please contact: [phone] * Full Code (Latest Code Status on File) Date Activated Date Inactivated Comments 05/09/2022 5:30 AM 05/09/2022 10:28 AM Care Teams Primer Waterproofing Machine Operator Relationship Specialty Start Date End Date Ayden Noyola MD [address] [place] [address] PCP - General Adolescent Medicine 05/09/22
--- OUTSIDE RECORDS SUMMARY | 2025-04-15 10:44 | XMS_ITS | Clinical Summary ---
Author Organization [facility] Address [address] [place] [address] Care Team Providers Care Electronic Service Technician Name Role Phone Dinesh Yanez MD Primary Care Provider [phone] Allergies Active Allergy Reactions Criticality Noted Date Comments Penicillins Hives Low 12/16/2017 Medications aspirin 81 MG EC tablet Take 1 tablet by mouth Daily. Active pravastatin (PRAVACHOL) 40 MG tablet Take 1 tablet by mouth Daily. Active ibuprofen (ADVIL,MOTRIN) 800 MG tablet Take 1 tablet by mouth Every 6 (Six) Hours As Needed for Mild Pain. Active cyclobenzaprine (FLEXERIL) 5 MG tablet Take 1 tablet by mouth Every 12 (Twelve) Hours. 3 Active QUEtiapine (SEROquel) 25 MG tablet TAKE 1 TABLET BY MOUTH EVERY DAY NEEDED FOR MIGRAINES Active metoprolol succinate XL (TOPROL-XL) 25 MG 24 hr tablet Take 1 tablet by mouth Daily. for high blood pressure Active amLODIPine (NORVASC) 10 MG tablet Take 1 tablet by mouth Daily. 3 Active albuterol sulfate HFA 108 (90 Base) MCG/ACT inhaler INHALE 2 PUFFS BY MOUTH EVERY 6 HOURS NEEDED FOR SHORTNESS OF BREATH OR WHEEZING 3 Active imipramine (TOFRANIL) 25 MG tablet TAKE 1 TABLET BY MOUTH AT BEDTIME NIGHTLY Active phentermine (ADIPEX-P) 37.5 MG tablet Take 1 tablet by mouth Every Morning Before Breakfast. 4 Active oxybutynin XL (DITROPAN-XL) 10 MG 24 hr tablet Take 1 tablet by mouth Daily. 4 Active levothyroxine sodium (TIROSINT) 137 MCG capsule 1 capsule. 5 Active estradiol (ESTRACE) 0.5 MG tablet 5 Active omeprazole (priLOSEC) 40 MG capsule Take 1 capsule by mouth Every 12 (Twelve) Hours. 5 Active triamcinolone (KENALOG) 0.1 % cream APPLY TO AFFECTED AREA TWICE DAILY FOR ITCHING 5 Active Active Problems Problem Noted Date Diagnosed Date Diastolic dysfunction 03/02/2024 Assessment & Plan (03/02/2024 12:53 PM EDT): Grade 1 diastolic dysfunction on echo from 01/08/2023. - We will continue to monitor. Patient is currently asymptomatic. Shortness of breath 01/23/2023 Assessment & Plan (03/03/2025 6:59 PM EDT): She reports that she does have shortness [...] should come back for further evaluation sooner Assessment & Plan (03/02/2024 12:53 PM EDT): Shortness of breath has resolved. She is unsure what was causing the cough and shortness of breath but she is currently asymptomatic. Assessment & Plan (02/19/2023 12:03 PM EDT): Patient has had shortness of breath and chronic cough since December. She had a CTA of chest on 12/27/2022 revealed no pulmonary embolism. Small pericardial effusion of uncertain etiology. She had an echocardiogram on 01/08/2023 that revealed normal LV size and function. Trace mitral regurgitation. No pericardial effusion noted on echo. She has had mild improvement in shortness of breath and cough since last visit. - Nuclear stress test revealed no evidence of ischemia. - Follow-up with primary care provider if cough persist. Discussed possibility of the cough being related to GERD or allergies. Assessment & Plan (01/23/2023 1:05 PM EDT): Shortness of breath and cough x several weeks. CTA of chest on 12/27/2022 revealed no pulmonary embolism. Small pericardial effusion of uncertain etiology. She had an echocardiogram on 01/08/2023 that revealed normal LV size and function. Trace mitral regurgitation. No pericardial effusion noted on echo. - Nuclear stress test - Possible viral bronchitis, trial of prednisone Dosepak. Hypertension 01/23/2023 Assessment & Plan (03/03/2025 7:00 PM EDT): Pressure today 148/80. And this is borderline. [...] encouraged to lower her sugars and carbohydrates Assessment & Plan (03/02/2024 12:53 PM EDT): Hypertension is stable and controlled Continue current treatment regimen. Dietary sodium restriction. Weight loss. Regular aerobic exercise. Blood pressure will be reassessed in 1 year. Assessment & Plan (02/19/2023 12:01 PM EDT): Hypertension is stable . Slightly elevated today at 140/90. Continue current treatment regimen. Dietary sodium restriction. Weight loss. Ambulatory blood pressure monitoring. Blood pressure will be reassessed at the next regular appointment. Assessment & Plan (01/23/2023 12:58 PM EDT): Hypertension is stable . Continue current treatment regimen. Regular aerobic exercise. Blood pressure will be reassessed at the next regular appointment. Precordial chest pain 01/23/2023 Assessment & Plan (02/19/2023 12:04 PM EDT): Nuclear stress test revealed no evidence of ischemia. She had a C in 2017 that showed normal coronary arteries. Assessment & Plan (01/23/2023 12:59 PM EDT): Chest tightness and shortness of breath - Nuclear stress test for further evaluation. Encounters Date Type Department Care Team Description 03/03/2025 10:30 AM EDT Office Visit [facility] [address] [place] [address] Vicki Torres APRN Shortness of breath (Primary Dx); Primary hypertension 03/03/2025 Patient rounding ([facility] only) [facility] [address] [place] [address] Vicki Torres APRN 03/03/2025 Travel from Last 3 Months Social History Tobacco Use Types Packs/Day Years [...] Orientation Straight 02/24/2025 10 :33 AM EDT Last Filed Vital Signs Vital Sign Reading [...] Mass Index 40.98 03/03/2025 10:25 AM EDT Plan of Treatment Upcoming Encounters Date Type Department Care Team (Late st Contact Info) Description 03/09/2026 11:30 AM EDT Office Visit [facility] [address] [place] [address] Cee Juarez APRN [address] [place] [address] Health Maintenance Due Date Last Done Comments Annual Gynecologic Pelvic and Breast Exam 1966 PAP SMEAR 1987 MAMMOGRAM 2006 COLOGUARD 2011 COLON CANCER SCREENING 5 YEA R SIGMOIDOSCOPY 2011 COLONOSCOPY 2011 COL[address] CANCER SCREENING 2011 CT COLONOGRAPHY 2011 FECAL OCCULT BLOOD TEST 2011 FIT Testing (1 year) 2011 Pneumococcal Vaccine 50+ (1 of 1 - PCV) 2016 ZOSTER VACCINE (1 of 2) 2016 ANNUAL WELLNESS VISIT 12/03/2017 HEPATITIS C SCREENING 12/03/2017 INFLUENZA VACCINE 02/11/2025 04/25/2016 TDAP/TD VACCINES (3 - Td or Tdap) 04/25/2026 016, 12/03/2015 Procedures Procedure Name Priority Date/Time Associated Diagnosis Comments ECG 12-LEAD Routine 03/03/2025 7:01 PM EDT Shortness of breath Primary hypertension from Last 3 Months Results * ECG 12-LEAD (03/03/2025 7:01 PM [...] impression: non-specific ECG Procedure Note Vicki Torres APRN - 03/03/2025 10:30 AM EDT Images from [...] Grade 1 diastolicdysfunction. Trace mitral valve regurgitation. LHC 03/19/2017-normal coronary arteries. CTA of chest 12/27/2022-no [...] information pulled intothe AVS if appropriate. us iVcki Torres TIE FASTENER ECG ORDERABLES Final R esult BH ECG from Last 3 Months Insurance [facility] [email or web address] [facility] [employer]M MEDICARE ADVANTAGE HMO Care Teams Electronic Service Technician Relationship Specialty Start Date End Date Dinesh Yanez MD [address] [place] [address] PCP - General Family Medicine 12/30/22
--- OUTSIDE RECORDS SUMMARY | 2025-04-15 10:44 | XMS_ITS | Encounter Summary ---
Author Organization [employer] ([place], [place], [place], [place]) Address [address] [place] [address] Care Team Providers Care Oil Field Operator Name Role Phone Ayden Noyola MD Primary Care Provider [phone] Reason for Referral * Diagnostic X-Ray (Routine) - Closed Specialty Diagnoses / Procedures Referred By Contac t Referred To Contact Diagnoses Low back pain, unspecified back pain laterality, unspecified chronicity, unspecified whether sciatica present Procedures XR hip 2 views left Mariza, [place] [address] Referral ID Status Reason Start Date Expiration Date Visits Re quested Visits Authorized [id number] Closed 11/19/2022 05/18/2023 1 1 * Diagnostic X-Ray (Routine) - Closed Specialty Diagnoses / Procedures Referred By Contac t Referred To Contact Diagnoses Low back pain, unspecified back pain laterality, unspecified chronicity, unspecified whether sciatica present Procedures XR spine lumbar 2 or 3 views Mariza, [place] [address] Referral ID Status Reason Start Date Expiration Date Visits Re quested Visits Authorized [id number] Closed 11/19/2022 05/18/2023 1 1 Encounter Details Date Type Department Care Team (Late st Contact Info) Description 11/19/2022 Outside Orders [facility] Admitting [address] [place] [address] Dinesh Yanez MD [address] [place] [address] Low back pain, unspecified back pain laterality, unspecified chronicity, unspecified whether sciatica present (Primary Dx) Social History Tobacco Use Types Packs/Day Years Used Date Smoking Tobacco: Never Smokeless Tobacco: Never Alcohol Use Standard Drinks/Week Comments Never 0 (1 standard drink = 0.6 oz pur e alcohol) Comments Unknown Sex and Gender Information Value Date Recorded Sex Assigned at Not on file Legal Sex Female 5:38 PM CDT Gender Identity Not on file Sexual Orientation Not on file COVID-19 Exposure Response Date Recorded In the last 10 days, have yo u been in contact with someone who was confirmed or suspected to have Coronavirus/COVID-19? No / Unsure 11/19/2022 1:30 PM EDT documented as of this encounter Plan of Treatment Not on file documented as of this encounter Results * XR hip 2 views left (11/19/2022 1:41 PM EDT) Anatomical Region Laterality Modality Pelvis X-Ray 11/19/2022 3:01 PM EDT Impressions 11/19/2022 5:17 PM EDT Degenerative changes with no acute bony abnormality. Images reviewed, interpreted, and dictated by Dr. Alfredo Paulson. Transcribed by Veronica Gannon PA-C. Narrative 11/19/2022 5:17 PM EDT LEFT HIP SERIES HISTORY: Left hip pain x1 week. COMPARISON: None. FINDINGS: A two view exam demonstrates no acute fracture or dislocation. Hips are located in the acetabulum bilaterally. The joint spaces appear unremarkable. No soft tissue abnormality is seen. There is mild disc space narrowing of the lower lumbar spine. There is degenerative change of the pubis. Procedure Note Alfredo Paulson MD - 11/19/2022 LEFT HIP SERIES HISTORY: Left hip pain x1 week. COMPARISON: None. FINDINGS: A two view exam demonstrates no acute fracture or dislocation. Hips are located in the acetabulum bilaterally. The joint spaces appear unremarkable. No soft tissue abnormality is seen. There is mild disc space narrowing of the lower lumbar spine. There is degenerative change of the pubis. IMPRESSION: Degenerative changes with no acute bony abnormality. Images reviewed, interpreted, and dictated by Dr. Alfredo Paulson. Transcribed by Veronica Gannon PA-C. us Provider Not In The System [place] ORDERABLES Final Result * XR spine lumbar 2 or 3 views (11/19/2022 1:41 PM EDT) Anatomical Region Laterality Modality L-spine X-Ray 11/19/2022 3:14 PM EDT Impressions 11/19/2022 3:29 PM EDT Degenerative changes without acute process . Images reviewed, interpreted, and dictated by Dr. Halina Scott. Transcribed by Dioni Lisa PA-C. Narrative 11/19/2022 3:29 PM EDT LUMBAR SPINE HISTORY: Acute lumbar back pain radiating to left hip. COMPARISON: None FINDINGS: Three views of the lumbar spine were obtained. No fracture is identified . There are normal vertebral body heights.There is mild narrowing of L3-L4 with mild spurring. There is moderate disc space narrowing of the lower thoracic spine noted. Alignment is normal . Procedure Note Halina Scott MD - 11/19/2022 LUMBAR SPINE HISTORY: Acute lumbar back pain radiating to left hip. COMPARISON: None FINDINGS: Three views of the lumbar spine were obtained. No fracture is identified . There are normal vertebral body heights.There is mild narrowing of L3-L4 with mild spurring. There is moderate disc space narrowing of the lower thoracic spine noted. Alignment is normal . IMPRESSION: Degenerative changes without acute process . Images reviewed, interpreted, and dictated by Dr. Halina Scott. Transcribed by Dioni Lisa PA-C. us Provider Not In The System [facility] ORDERABLES Final Result documented in this encounter Visit Diagnoses Diagnosis Low back pain, unspecified back pain laterality, unspecified chronicity, unspecified whether sciatica present- Primary Low back pain, unspecified back pain laterality, unspecified chronicity, unspecified whether sciatica present Low back pain, unspecified back pain laterality, unspecified chronicity, unspecified whether sciatica present documented in this encounter Care Teams Oil Field Operator Relationship Specialty Start Date End Date Ayden Noyola MD [address] [place] [address] PCP - General Adolescent Medicine 05/09/22 documented as of this encounter
--- OUTSIDE RECORDS SUMMARY | 2025-04-15 10:44 | XMS_ITS | Encounter Summary ---
Author Organization [facility] Address [address] [place] [address] Care Team Providers Care Inbound Sales Manager Name Role Phone Dinesh Yanez MD Primary Care Provider [phone] Encounter Details Date Type Department Care Team (Late st Contact Info) Description 03/03/2025 Patient rounding ([facility] only) [facility] [address] [place] [address] Vicki Torres, SENIOR WEB ANALYST [address] [place] [address] [place] [address] Social History Tobacco Use Types Packs/Day Years [...] AM EDT documented as of this encounter Progress Notes * Tommy Griffin RegSched Rep - 03/03/2025 1:08 PM EDT ..My name is Debbie Cohen and I am the Cashier Credit for [facility]. I would like to thank you for being a loyal patient. If you do not mind I would like to ask you a few questions about your recent visit with us. Please feel free to reply if you wish to provide us with feedback on your first visit with our practice. First, could you tell me what went well with your recent visit? Secondly, we are always looking for ways to make our patients' experiences even better. Do you haveany recommendations on ways we may improve? Finally, overall were you satisfied with your first visit to us as a [facility]? In the next few days, you will be receiving a Patient Experience Survey. Thank you for taking the time to answer a few questions today. I hope you have a good day. documented in this encounter Plan of Treatment Upcoming Encounters Date Type Department Care Team (Late st Contact Info) Description 03/09/2026 11:30 AM EDT Office Visit [facility] [address] [place] [address] Cee Juarez APRN [address] [place] [address] documented as of this encounter Visit Diagnoses Not on filedocumented in this encounter Care Teams Inbound Sales Manager Relationship Specialty Start Date End Date Dinesh Yanez MD [address] [facility] [address] PCP - General Family Medicine 12/30/22 documented as of this encounter
== END 2025-04-14 23:59 ==
LOC: LAB.DROPOF 04-15 10:40
PROVIDERS: PCP Family Medicine; Visit Provider Family Medicine
DX: E03.9 Hypothyroidism, unspecified (principal); R51.9 Headache, unspecified
CPT/HCPCS: 84436; 84439; 84443

== ENCOUNTER 2025-06-27 11:26 | Outpatient (CLI) | payer MEDICARE, OTHER, SELFPAY ==
[2025-06-29 16:40] LABS: T4 (Thyroxine) 13.6 ug/dl (5.53-11.0)
[2025-06-29 16:54] LABS: Thyroid Stimulating Hormone 2.00 uIU/mL (0.465-4.68)
[2025-06-29 17:08] LABS: Hepatitis C Ab Qual. W/ RFX NEGATIVE (Negative)
--- OUTSIDE RECORDS SUMMARY | 2025-06-29 20:25 | XMS_ITS | Clinical Summary ---
Author Organization [facility] Address [address] [place] [address] Care Team Providers Care Ware Finisher Name Role Phone Dinesh Yanez MD Primary Care Provider +1- [phone] Allergies Active Allergy Reactions Criticality Noted Date [...] no evidence of ischemia. She had a LHC in 2017 that showed normal coronary arteries. Assessment & Plan (01/23/2023 12:59 PM EDT): Chest tightness and shortness of breath - Nuclear stress test for further evaluation. Social History Tobacco Use Types Packs/Day Years [...] Description 03/09/2026 11:30 AM EDT Office Visit [facility] [address] [place] [address] Cee Juarez, STEAMTABLE WORKER [address] [place] [address] Health Maintenance Due Date Last Done Comments [...] - Td or Tdap) 04/25/2026 016, 12/03/2015 Insurance [employer] [facility] [employer]M MEDICARE ADVANTAGE O Care Teams Ware Finisher Relationship Specialty Start Date End Date Dinesh Yanez MD [address] [place] [address] PCP - General Family Medicine 12/30/22
--- OUTSIDE RECORDS SUMMARY | 2025-06-29 20:25 | XMS_ITS | Clinical Summary ---
Author Organization [employer] ([place], [place], [place], [place], [place]) Address [address] [place] [address] Care Team Providers Care Associate Scientist Name Role Phone Ayden Noyola MD Primary Care Provider + [phone] Allergies Active Allergy Reactions Criticality Noted Date [...] Date Roland rded Speak language other than Brazilian at home Not on file 07/31/2023 Want [...] 04/25/2026, 12/03/2015 Medical Devices Implanted Type Area Hand Blocker Device Identifier Shelf Expiration Date Model / Serial / Lot Replacement Bilateral: [place] [address] [facility] ACCESS HMO MAP [facility] [employer] Advance Directives For more information, please contact: [phone] * Full Code (Latest Code Status on File) Date Activated Date Inactivated Comments 05/09/2022 5:30 AM 05/09/2022 10:28 AM Care Teams Associate Scientist Relationship Specialty Start Date End Date Ayden Noyola MD [address] [place] [address] PCP - General Adolescent Medicine 05/09/22
--- OUTSIDE RECORDS SUMMARY | 2025-06-29 20:25 | XMS_ITS | Clinical Summary ---
Author Organization [facility] [facility] Address [address] [place] [address] Care Team Providers Care Cook Barbecue Name Role Phone Unavailable Primary Care Provider Unavailabl e Social History Tobacco Use Types Packs/Day Years Used Date Smoking Tobacco: Never Assessed Comments Unknown Sex and Gender Information Value Date Recorded Sex Assigned at Not on file Legal Sex Female 8:43 PM EST Gender Identity Not on file Sexual Orientation Not on file Plan of Treatment Not on file Medical Devices Not on file
--- OUTSIDE RECORDS SUMMARY | 2025-06-29 20:25 | XMS_ITS | Referral Summary ---
Author Organization [employer] ([place], [place], [place], [place], [place]) Address [address] [place] [address] Care Team Providers Care Electrical And Instrumentation Mechanic Name Role Phone Ayden Noyola MD Primary Care Provider + [phone] Allergies Active Allergy Reactions Criticality Noted Date [...] Date Roland rded Speak language other than [place] at home Not on file 07/31/2023 Want [...] on file Medical Devices Implanted Type Area Race Starter Device Identifier Shelf Expiration Date Model / Serial / Lot Replacement Bilateral: Knee Insurance [facility] ACCESS O MAP [employer] LIFE Advance Directives For more information, please contact: [phone] * Full Code (Latest Code Status on File) Date Activated Date Inactivated Comments 05/09/2022 5:30 AM 05/09/2022 10:28 AM Care Teams Electrical And Instrumentation Mechanic Relationship Specialty Start Date End Date Ayden Noyola MD [address] [place] [id number] PCP - General Adolescent Medicine 05/09/22
[2025-07-01 09:29] LABS: Hepatitis B Surface Antigen Negative (Negative)
== END 2025-06-27 23:59 | disposition home or self-care (01) ==
LOC: LAB.DROPOF 06-29 20:24
PROVIDERS: PCP Family Medicine; Visit Provider Family Medicine
DX: E03.9 Hypothyroidism, unspecified (principal); Z11.59 Encounter for screening for other viral diseases; Z11.4 Encounter for screening for human immunodeficiency virus [HIV]
CPT/HCPCS: 84436; 84443; 86803; 87340; 87389